=== PATIENT | female | born 1975 | race Caucasian/White ===

== ENCOUNTER → 2025-04-28 | Outpatient (CLI) | payer OTHER ==
--- NOTE | 2025-04-28 11:30 | P.BASOAP ---
Subjective Progress Note Date: 04/28/25 Principal diagnosis: Lap-Band malfunction 50-year-old female known to our service. Patient was seen in the office and had a suspected leak from her band site. Patient apparently has an insurance that is not allow us to do her procedures here and for that reason she was sent to 2 separate hospitals outside of [facility]. They were unable to perform the fluoroscopic fill to evaluate for where the fluid was leaking from. Apparently the insurance was then approved to do that procedure here. Feels little to no restriction. Patient is interested in keeping her Lap-Band. Objective - Exam Abdomen: Soft, nontender, nondistended Assessment/Plan (1) Morbid obesity Narrative/Plan: 50-year-old female with malfunctioning Lap-Band. Will proceed with fluoroscopic Lap-Band fill. Patient's band was sterilely accessed after localizing with lidocaine. 20 cc of Isovue was utilized. Only 7 to 8 cc was inserted. As soon as we injected under fluoroscopic guidance you could see the fluid leaking from the port just at the proximal aspect of the tubing. The needle was withdrawn. Findings discussed with the patient. Will proceed with Lap-Band port replacement laparoscopically. Plan: Date: Initial Weight: Initial BMI: Current Weight: Current BMI: Type of Surgery: Total Volume in Band: Previous Volume: Volume Removed: Volume Added: Band Size:
--- NOTE | 2025-04-28 15:07 | FL ---
EXAMINATION TYPE: FL guided adjust gastric band DATE OF EXAM: 04/28/2025 11:32 AM COMPARISON: Pre Operative Images if available both CT/MRI or plain film CLINICAL INDICATION: Female, 50 years old with history of R13.10 DYSPHAGIA, UNSPECIFIED; TECHNIQUE: FL guided adjust gastric band, multiple fluoroscopic images provided for procedure. DAP: Not recorded mGym2 Gycm2 uGym2 cGycm2 or equivalent. FINDINGS: Gastric lap band in place. No extravasation of contrast. IMPRESSION: 1. Report was generated for administrative purposes only. 2. Please see the operative/procedural note for further details. [facility], , 04/28/2025 3:04 PM
== END | disposition home or self-care (01) ==
LOC: RADFLMAIN 10:31
PROVIDERS: ATTEND Surgery
DX: R13.10 Dysphagia, unspecified (principal)